=== PATIENT | female | born 1990 | race Caucasian/White ===

== ENCOUNTER 2019-12-10 21:29 | Emergency (ER) | payer OTHER, SELFPAY ==
[2019-12-10 21:37] VITALS: BP 148/88; PULSE 99; RESP 18; TEMP 36.4; O2SAT 100
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
[2019-12-10] MEDS: HYDROcodone/acetaminophen (*CRX) 5-325 MG TABLET 2 TAB PO (22:06)
== END 2019-12-10 23:11 | disposition home or self-care (01) ==
PROVIDERS: Emergency Provider Emergency Medicine
DX: T23.251A Burn of second degree of right palm, initial encounter (principal); T31.0 Burns involving less than 10% of body surface; X15.3XXA Contact with hot saucepan or skillet, initial encounter
CPT/HCPCS: 99283; A9270

== ENCOUNTER 2024-11-06 16:26 | Emergency (ER) | payer OTHER, SELFPAY ==
[2024-11-06 16:35] VITALS: BP 110/73; PULSE 91; RESP 18; TEMP 36.6; O2SAT 99
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
== END 2024-11-06 16:58 | disposition home or self-care (01) ==
PROVIDERS: Emergency Provider Nurse Practitioner
DX: M54.50 Low back pain, unspecified (principal); J45.909 Unspecified asthma, uncomplicated; E28.2 Polycystic ovarian syndrome; M19.90 Unspecified osteoarthritis, unspecified site
CPT/HCPCS: 99213; G0463